=== PATIENT | female | born 1975 | race African-American/Black ===

== ENCOUNTER 2017-02-07 01:19 | Emergency (ER) | payer MEDICAID ==
[~2017-02-07] VITALS: Ht 172.7 cm; Wt 135.4 kg
[~2017-02-07 01:19] MED LIST: ADVA115A PO; ALBU0.086 NEB; ALBU1AER INH; CHOL4POW PO; CYCL-36 PO; DIFL150T PO; FLUT1SPR9; FURO1TAB93 PO; GABA600T PO; HYDR-3535 PO; JANU100T PO; LATU80TA PO; LEVEMIR SQ; LISI-363 PO; LITH300C2 PO; LORA-474 PO; METO25 PO; NOVOLOGP2 SQ; SIMV10 PO; SITA1TAB2 PO; TRAZ50TA4 PO; WAL-10TA2 PO
[2017-02-07 01:22] VITALS: BP 134/73; PULSE 94; RESP 16; TEMP 98.5; O2SAT 99
[2017-02-07] MEDS ORDERED: SODIUM CHLORIDE 0.9% FLUSH 10 ML FLUSH IV FLUSH PRN (02:15)
[2017-02-07] MEDS ORDERED: SODIUM CHLOR 0.9% 1000 ML INJ 1,000 ML IV SCH (02:15)
[2017-02-07] MEDS ORDERED: CYCL1TAB29 PO (03:01)
[2017-02-07] MEDS ORDERED: HUMALOG SQ (03:01)
[2017-02-07] MEDS ORDERED: ALBU6.7H INH (03:01)
[2017-02-07] MEDS ORDERED: LURA80 PO (03:01)
[2017-02-07] MEDS ORDERED: ADVA100A INH (03:01)
[2017-02-07] MEDS ORDERED: LEVEMIR SQ (03:01)
[2017-02-07] MEDS ORDERED: LITH300C2 PO (03:01)
[2017-02-07] MEDS ORDERED: LORA-474 PO (03:01)
[2017-02-07] MEDS ORDERED: HYDR-3535 PO (03:01)
[2017-02-07] MEDS ORDERED: SITA1TAB2 PO (03:01)
[2017-02-07] MEDS ORDERED: CHOL4POW PO (03:01)
[2017-02-07] MEDS ORDERED: GABA600T PO (03:01)
[2017-02-07] MEDS ORDERED: TRAZ50TA12 PO (03:01)
[2017-02-07 03:18] LABS: AUTOMATED NEUTROPHIL # 2.8 TH/MM3 (1.8-7.7); BASOPHIL % 0.4 % (0.0-2.0); EOSINOPHIL # 0.2 TH/MM3 (0-0.4); EOSINOPHIL % 3.4 % (0.0-4.0); HEMATOCRIT 39.2 % (35.0-46.0); HEMO FLAGS DIFF FINAL; LYMPHOCYTE # 3.2 TH/MM3 (1.0-4.8); MEAN CELL VOLUME 79.6 FL (80.0-100.0); MEAN CORPUSCULAR HEMOGLOBIN 25.4 PG (27.0-34.0); MONO % 4.3 % (0.0-8.0); NEUT % 42.9 % (16.0-70.0); PLATELET COUNT 313 TH/MM3 (150-450); RED BLOOD COUNT 4.93 MIL/MM3 (4.00-5.30); RED CELL DISTRIBUTION WIDTH 16.2 % (11.6-17.2); WHITE BLOOD COUNT 6.5 TH/MM3 (4.0-11.0)
[2017-02-07 03:23] LABS: BACTERIA, URINE RARE /hpf; BLOOD, URINE NEG (NEG); GLUCOSE,URINE 1000 mg/dL (NEG); KETONE, URINE NEG (NEG); MUCUS URINE FEW /lpf (OCC); NITRITE,URINE NEG (NEG); PH, URINE 5.5 (5.0-8.5); SQUAMOUS EPITHELIAL CELL URINE 4 /hpf (0-5); URINE COLOR YELLOW (YELLW/STRAW)
[2017-02-07 03:24] LABS: COMMENT (UR) CULT NOT INDICATED; CULTURE IF INDICATED CULT NOT INDICATED
[2017-02-07] MEDS ORDERED: KETOROLAC TROMETHAMINE 30 MG/ML (IVP) VIAL IV PUSH ONE (03:30)
[2017-02-07 03:35] LABS: ALKALINE PHOSPHATASE 68 U/L (45-117); TOTAL BILIRUBIN ADULT 0.5 MG/DL (0.2-1.0)
--- NOTE | 2017-02-07 03:51 | RADRPT ---
EXAM DATE/TIME: 02/07/2017 03:37 [place] COMPARISON: No previous studies available for comparison. INDICATIONS : Left sided chest pain x 1 day. MEDICAL HISTORY : Diabetes mellitus type II. Asthma SURGICAL HISTORY : Inguinal hernia repair. Tubal ligation. ENCOUNTER: Initial ACUITY: 1 day PAIN SCORE: 7/10 LOCATION: Bilateral chest FINDINGS: PA and lateral views of the chest demonstrate the lungs to be symmetrically aerated without evidence of mass, infiltrate or effusion. The cardiomediastinal contours are unremarkable. Osseous structure s are intact. CONCLUSION: No acute disease. Rahul Zamorano MD on February 07, 2017 at 3:50 Board Certified Radiologist. This report was verified electronically.
[2017-02-07] MEDS ORDERED: GUAISYP7 PO (04:10)
[2017-02-07] MEDS ORDERED: NAPR500 PO (04:10)
--- NOTE | 2017-02-07 04:10 | PD ---
HPI Chief Complaint: Flank/Kidney Pain Time Seen by Provider: 03:07 Travel History International Travel<30 days: No Contact w/Intl Traveler<30days: No Traveled to known affect area: No History of Present Illness HPI So 41-year-old woman who presents to the emergency department complaining of pain in the right back and flank for the past week or so. States she's been sick with a cough or cold for the past week and the pains beginning worse over the past couple days. The worse with deep breath or movement. She doesn't dorsal to the shortness of breath with it. No other complaints. History Past Medical History Narrative Medical Asthma Diabetes Hypertension Gastroparesis Neuropathy : 2 Para: 2 Social History Alcohol Use: No Tobacco Use: No Allergies-Medications (Allergen,Severity, Reaction): Coded Allergies: Aspirin (Verified Allergy, Severe, HIVES, THROAT CLOSES, 12/28/15) Ceclor (Verified Allergy, Severe, RASH, 12/28/15) Proventil (Verified Allergy, Severe, THROAT CLOSES, 12/28/15) Adhesives (Verified Allergy, Intermediate, Irritation, 12/28/15) Biaxin (Verified Allergy, Intermediate, Itching, rash, 12/28/15) Doxycycline (Verified Allergy, Intermediate, Itching, rash, 12/28/15) Tramadol (Verified Allergy, Intermediate, Hives, Flushing, 12/28/15) Reported Meds & Prescriptions Reported Meds & Active Scripts Active Naprosyn (Naproxen) 500 Mg Tab 500 Mg PO BID PRN Guaifenesin DM Liq (Guaifenesin-Dextromethorphan Liq) 10-100 Mg/5 Ml Liq 10 Ml PO Q4H PRN Reported Cholestyramine Light 4 Gm/Dose Powd 6 Gm PO BID 1 level scoopful of powder contains 4 grams of cholestyramine. Proventil Hfa 6.7 GM Inh (Albuterol Sulfate) 90 Mcg/Act Aer 2 Puff INH Q6H PRN Advair Diskus Inh (Fluticasone-Salmeterol Inh) 100-50 Mcg/Blist Aer 2 Puff INH BID Rinse mouth after use. Flexeril (Cyclobenzaprine HCl) 10 Mg Tab 10 Mg PO TID Gabapentin 600 Mg Tab 600 Mg PO TID Lortab (Hydrocodone-Acetaminophen) 10-325 Mg Tab 1 Tab PO Q6H PRN Humalog Inj (Insulin Human Lispro) 1,000 Unit/10 Ml Vial 14 Units SQ TID Levemir Inj (Insulin Detemir) 1,000 unit/ 10 ML Vial 52 Units SQ HS Do not mix with any other Insulin. [place] Carbonate 300 Mg Cap 300 Mg PO BID PRN Ativan (Lorazepam) 1 Mg Tab 1 Mg PO Q12HR PRN Latuda (Lurasidone) 80 Mg Tab 80 Mg PO DAILY Januvia (Sitagliptin Phosphate) 100 Mg Tab 100 Mg PO DAILY Trazodone (Trazodone HCl) 50 Mg Tab 50 Mg PO HS Review of Systems Except as stated in HPI: all other systems reviewed are Neg Physical Exam Narrative GENERAL: Well-appearing 41-year-old woman, no acute distress. SKIN: Focused skin assessment warm/dry. HEAD: Atraumatic. Normocephalic. EYES: Pupils equal and round. No scleral icterus. No injection or drainage. ENT: No nasal bleeding or discharge. Mucous membranes pink and moist. NECK: Trachea midline. No JVD. CARDIOVASCULAR: Regular rate and rhythm. No murmur appreciated. RESPIRATORY: No accessory muscle use. Clear to auscultation. Breath sounds equal bilaterally. GASTROINTESTINAL: Abdomen soft, non-tender, nondistended. Hepatic and splenic margins not palpable. MUSCULOSKELETAL: No obvious deformities. Some minimal edema in both legs, symmetric. Data Data Last Documented VS Vital Signs Date Time Temp Pulse Resp B/P Pulse Ox O2 Delivery O2 Flow Rate FiO2 02/07/17 02:24 Room Air 02/07/17 01:22 98.5 94 16 134/73 99 Orders Complete Blood Count With Diff (02/07/17 02:15) Comprehensive Metabolic Panel (02/07/17 02:15) Lipase (02/07/17 02:15) Urinalysis - C+S If Indicated (02/07/17 02:15) Iv Access Insert/Monitor (02/07/17 02:15) Ecg Monitoring (02/07/17 02:15) Oximetry (02/07/17 02:15) Sodium Chlor 0.9% 1000 Ml Inj (Ns 1000 M (02/07/17 02:15) Sodium Chloride 0.9% Flush (Ns Flush) (02/07/17 02:15) Ed Urine Pregnancytest Poc (02/07/17 02:15) Chest, Pa & Lat (02/07/17 ) Ketorolac Inj (Toradol Inj) (02/07/17 03:30) Labs Laboratory Tests Test 02/07/17 02/07/17 02:22 02:44 Urine Color YELLOW Urine Turbidity CLEAR Urine pH 5.5 Urine Specific [place] 1.035 Urine Protein NEG mg/dL Urine Glucose (UA) 1000 mg/dL Urine Ketones NEG mg/dL Urine Occult Blood NEG Urine Nitrite NEG Urine Bilirubin NEG Urine Urobilinogen LESS THAN 2.0 MG/DL Urine Leukocyte Esterase NEG Urine RBC 1 /hpf Urine WBC 1 /hpf Urine Squamous Epithelial 4 /hpf Cells Urine Bacteria RARE /hpf Urine Mucus FEW /lpf Microscopic Urinalysis Comment CULT NOT INDICATED White Blood Count 6.5 TH/MM3 Red Blood Count 4.93 MIL/MM3 Hemoglobin 12.5 GM/DL Hematocrit 39.2 % Mean Corpuscular Volume 79.6 FL Mean Corpuscular Hemoglobin 25.4 PG Mean Corpuscular Hemoglobin 32.0 % Concent Red Cell Distribution Width 16.2 % Platelet Count 313 TH/MM3 Mean Platelet Volume 9.0 FL Neutrophils (%) (Auto) 42.9 % Lymphocytes (%) (Auto) 49.0 % Monocytes (%) (Auto) 4.3 % Eosinophils (%) (Auto) 3.4 % Basophils (%) (Auto) 0.4 % Neutrophils # (Auto) 2.8 TH/MM3 Lymphocytes # (Auto) 3.2 TH/MM3 Monocytes # (Auto) 0.3 TH/MM3 Eosinophils # (Auto) 0.2 TH/MM3 Basophils # (Auto) 0.0 TH/MM3 CBC Comment DIFF FINAL Differential Comment Sodium Level 138 MEQ/L Potassium Level 3.9 MEQ/L Chloride Level 102 MEQ/L Carbon Dioxide Level 25.4 MEQ/L Anion Gap 11 MEQ/L Blood Urea Nitrogen 11 MG/DL Creatinine 0.80 MG/DL Estimat Glomerular Filtration 96 ML/MIN Rate Random Glucose 332 MG/DL Calcium Level 9.0 MG/DL Total Bilirubin 0.5 MG/DL Aspartate Amino Transf 20 U/L (AST/SGOT) Alanine Aminotransferase 31 U/L (ALT/SGPT) Alkaline Phosphatase 68 U/L Total Protein 7.3 GM/DL Albumin 3.1 GM/DL Lipase 97 U/L [facility] Medical Decision Making Medical Screen Exam Complete: Yes Emergency Medical Condition: Yes Interpretation(s) LABS: CBC is unremarkable. CMP negative. Glucose 332 Lipase normal UA is negative Chest x-ray: Negative. Differential Diagnosis Back strain or sprain, chest wall pain, pleurisy, PE, other Narrative Course Medical decision-making 41-year-old woman who presents to the emergency department with cough cold symptoms and some pleuritic chest pain suggestive of strain or sprain or possibly pleurisy. I don't think she has a PE. Is no evidence of ACS. We'll check x-ray which are is no pneumonia. Otherwise she can follow-up. Diagnosis Primary Impression: Cough Additional Impression: Chest pain Additional Instructions: Take Naprosyn as needed for pain. Use cough syrup as needed for cough. Follow-up with your primary doctor in the next 2-4 days. Return to the emergency department for any new or worsening symptoms. Med/Other Pt SpecificInfo: Prescription(s) given Scripts Naproxen (Naprosyn)500 Mg [id number] Mg PO BID PRN (PAIN SCALE 1 TO 10) #20 TAB Prov:Mt Croft MD 02/07/17 Guaifenesin-Dextromethorphan Liq (Guaifenesin DM Liq)10-100 Mg/5 Ml Liq10 Ml PO Q4H PRN (COUGH) #1 BOTTLE Prov:Mt Croft MD 02/07/17 Disposition: 01 DISCHARGE HOME Condition: Stable Mt Croft MD Feb 07, 2017 04:10
[2017-02-07 05:08] LABS: ALT (GPT) 31 U/L (10-53)
[2017-02-07 05:10] LABS: ANION GAP 11 MEQ/L (5-15); AST (GOT) 20 U/L (15-37); BICARBONATE 25.4 MEQ/L (21.0-32.0); BLOOD UREA NITROGEN 11 MG/DL (7-18); CHLORIDE 102 MEQ/L (98-107); GLOMERULAR FILTRATION RATE 96 ML/MIN (>89); POTASSIUM 3.9 MEQ/L (3.5-5.1); SODIUM (NA) 138 MEQ/L (136-145)
[2017-02-07 05:52] VITALS: BP 122/79
[2017-02-18] MEDS ORDERED: LURA80 PO (10:55)
[2017-02-18] MEDS ORDERED: INSU1INJ5 SQ (10:55)
[2017-02-18] MEDS ORDERED: HYDR-3535 PO (10:55)
[2017-02-18] MEDS ORDERED: SITA1TAB2 PO (10:55)
[2017-02-18] MEDS ORDERED: CYCL1TAB29 PO (10:55)
[2017-02-18] MEDS ORDERED: CHOL4POW PO (10:55)
[2017-02-18] MEDS ORDERED: HUMALOG SQ (10:55)
[2017-02-18] MEDS ORDERED: LORA-474 PO (10:55)
[2017-02-18] MEDS ORDERED: GABA600T PO (10:55)
[2017-02-18] MEDS ORDERED: ADVA100A INH (10:55)
[2017-02-18] MEDS ORDERED: TRAZ50TA12 PO (10:55)
[2017-02-18] MEDS ORDERED: LITH300C2 PO (10:55)
[2017-02-18] MEDS ORDERED: ALBU6.7H INH (10:55)
[2017-02-18] MEDS ORDERED: INSU-126 (10:59)
[2017-02-18] MEDS ORDERED: AMLO5TAB2 PO (11:45)
== END 2017-02-07 05:57 | disposition home or self-care (01) ==
LOC: NEPE 01:19
DX: R05 Cough (principal); R07.9 Chest pain, unspecified; R10.9 Unspecified abdominal pain; M54.9 Dorsalgia, unspecified; E11.9 Type 2 diabetes mellitus without complications; I10 Essential (primary) hypertension; Z79.4 Long term (current) use of insulin; Z87.09 Personal history of other diseases of the respiratory system; Z87.19 Personal history of other diseases of the digestive system; Z86.69 Personal history of other diseases of the nervous system and sense organs
CPT/HCPCS: 71020; 80053; 81001; 83690; 84703; 85025; 96361; 96374; 99284; J1885; J7030